=== PATIENT | male | born 1945 | race Caucasian/White ===

== ENCOUNTER → 2024-10-07 12:44 | Outpatient (REF) | payer OTHER, SELFPAY | LOC: HWRCS 12:44 | PROVIDERS: ATTENDING PHYSICIAN Nurse Practitioner Family | DX: I34.1 Nonrheumatic mitral (valve) prolapse (principal) | CPT/HCPCS: 93306 ==

== ENCOUNTER → 2025-01-26 10:00 | Outpatient (REF) | payer OTHER, SELFPAY | LOC: RAD 10:00 | PROVIDERS: FAMILY PHYSICIAN Physician Assistant Medical | DX: I71.21 Aneurysm of the ascending aorta, without rupture (principal) | CPT/HCPCS: 71275; Q9967 ==